=== PATIENT | female | born 1960 | race Native Hawaiian/Other Pacific Islander ===

== ENCOUNTER 2017-03-31 09:25 | Outpatient (CLI) | payer OTHER ==
[2017-03-31 13:29] LABS: Basophils % (Auto) 0.3 % (0.0-1.8); Eosinophils % (Auto) 0.8 % (0.0-4.3); Hematocrit 40.7 % (30.3-42.9); Hemoglobin 13.6 gm/dl (10.1-14.3); Mean Corpuscular HGB Conc 33 % (30-34); Mean Corpuscular Hemoglobin 29 pg (28-32); Mean Corpuscular Volume 87 fl (79-97); Platelet Count 229 K/mm3 (140-440); Red Blood Count 4.66 M/mm3 (3.65-5.03); Red Cell Distribution Width 13.3 % (13.2-15.2)
[2017-03-31 13:55] LABS: Alanine Aminotransferase 24 units/L (7-56); Albumin 4.2 g/dL (3.9-5); Albumin/Globulin Ratio 1.3 %; Alkaline Phosphatase 81 units/L (35-129); Blood Urea Nitrogen 9 mg/dL (7-17); Calcium 9.2 mg/dL (8.4-10.2); Carbon Dioxide 25 mmol/L (22-30); Cholesterol 201 mg/dL (50-199); Glucose 75 mg/dL (65-100); HDL Cholesterol 48 mg/dL (40-59); LDL Cholesterol,Direct 131 mg/dL (50-130); Total Protein 7.5 g/dL (6.3-8.2); Triglycerides 113 mg/dL (2-149)
[2017-03-31 13:56] LABS: Anion Gap 18 mmol/L; Chloride 101.2 mmol/L (98-107); Potassium 3.9 mmol/L (3.6-5.0); Sodium 140 mmol/L (137-145)
[2017-04-04 15:59] LABS: Vitamin D, 25-OH, Total 25 ng/mL (30-100)
== END 2017-03-31 09:26 | disposition home or self-care (01) ==
LOC: LABHHL 09:25
PROVIDERS: ATTEND Internal Medicine
DX: J30.9 Allergic rhinitis, unspecified (principal); E03.8 Other specified hypothyroidism; M85.80 Other specified disorders of bone density and structure, unspecified site; Z79.899 Other long term (current) drug therapy
CPT/HCPCS: 36415; 80053; 80061; 82306; 82607; 83036; 84443; 85025